=== PATIENT | female | born 1970 | race African-American/Black ===

== ENCOUNTER 2016-09-23 12:30 | Emergency (ER) | payer OTHER ==
[~2016-09-23 12:30] MED LIST: DOXYCYCLINE HY100 MG PO; FLAGYL500 MG PO; HCTZ12.5 MG PO; LEXAPRO20 MG PO; NORVASC2.5 MG PO; PERCOCET 7.5/321 TAB PO; VISTARIL25 MG PO
[2016-09-23 13:11] LABS: BASOPHIL 0.1 % (0-2); EOSINOPHIL 0.5 % (0-5); HCT 29.4 % (37.0-47.0); HGB 9.4 g/dl (12.5-16.0); LYMPHOCYTE 8.4 % (15-48); MCH 24.5 pg (25.0-31.0); MCV 76.8 fL (78.0-100.0); MONOCYTE 5.5 % (0-12); MPV 8.7 fL (6.0-9.5); NEUTROPHIL 85.5 % (41-80); PLT 400 K/uL (150-400); RBC 3.83 M/uL (4.20-5.40); RDW 19.6 % (11.5-14.0); WBC 17.4 K/uL (4.0-10.5)
[2016-09-23 13:31] LABS: ALBUMIN 3.7 g/dL (3.5-5.0); BILIRUBIN - TOTAL 0.8 mg/dL (0.1-1.0); CREATININE 1.1 mg/dL (0.5-1.0); GLOBULIN (CALCULATION) 4.5 g/dL (2.2-4.2); POTASSIUM 3.3 mmol/L (3.5-5.1); TOTAL PROTEIN 8.2 g/dL (6.4-8.3)
[2016-09-23 13:50] LABS: BILIRUBIN 1+ mg/dL (NEGATIVE); BLOOD 1+ Ery/uL (NEGATIVE); CLARITY HAZY (CLEAR); COLOR AMBER (YELLOW); GLUCOSE (U) NORMAL (NORMAL); KETONE (U) TRACE mg/dL (NEGATIVE); LEUKOCYTES NEGATIVE Leu/uL (NEGATIVE); NITRITE NEGATIVE (NEGATIVE); PROTEIN 2+ mg/dL (NEGATIVE)
[2016-09-23 13:55] LABS: BACTERIA TRACE
== END 2016-09-23 16:53 | disposition other institution (70) ==
LOC: FER 12:30
PROVIDERS: Emergency Medicine
DX: A41.9 Sepsis, unspecified organism (principal); N70.92 Oophoritis, unspecified; I10 Essential (primary) hypertension; F41.9 Anxiety disorder, unspecified; Z79.899 Other long term (current) drug therapy
CPT/HCPCS: 36415; 80053; 81001; 82150; 83690; 85025; 87040; 87088; J0694; Q9967